=== PATIENT | female | born 1950 | race Caucasian/White ===

== ENCOUNTER 2017-04-09 16:50 | Inpatient (IN) | payer SELFPAY ==
[~2017-04-09] VITALS: Ht 162.6 cm; Wt 60.8 kg
[2017-04-09 17:42] LABS: BASOPHILS % 0.5 % (0.0-2.0); HEMATOCRIT. 39.2 % (36.0-48.0); HEMOGLOBIN. 13.5 g/dL (12.0-16.0); LYMPHOCYTES % 17.6 % (20.0-50.0); MEAN CORPUSCULAR HEMOGLOBIN 32.3 pg (28.0-32.0); MEAN CORPUSCULAR VOLUME 93.8 fL (81.0-99.0); MEAN PLATELET VOLUME 7.8 fl (7.4-10.4); MONOCYTES % 5.6 % (2.0-8.0); NEUTROPHILS % 72.3 % (40.0-76.0); PLATELET 133 x1000/uL (130-400); RED BLOOD CELL COUNT 4.18 mill/uL (4.2-5.4); RED CELL DISTRIBUTION WIDTH 13.1 % (11.6-14.6)
[2017-04-09 17:57] LABS: AMMONIA 35 uMol/L (<32)
[2017-04-09 17:59] LABS: CARBON DIOXIDE 24 mEq/L (21-32); CHLORIDE 107 mEq/L (98-107); CREATINE KINASE 70 IU/L (26-192); ETHANOL BLOOD < 10 mg/dL; TROPONIN I < 0.02 ng/mL (0.00-0.04)
[2017-04-09 18:04] LABS: CLARITY URINE CLOUDY (CLEAR); COLOR URINE DARK YELLOW (YELLOW); GLUCOSE URINE NEGATIVE (NEGATIVE); KETONES URINE 1+ (NEGATIVE); LEUKOCYTE ESTERASE URINE 2+ (NEGATIVE); NITRITE URINE POSITIVE (NEGATIVE); OCCULT BLOOD URINE NEGATIVE (NEGATIVE); PH URINE 5.5 (4.5-8.0); PROTEIN URINE TRACE (NEGATIVE); SPECIFIC GRAVITY URINE 1.024 (1.005-1.030)
[2017-04-09 18:19] LABS: *AMPHETAMINES SCREEN URINE NEGATIVE (NEGATIVE); *BARBITURATES SCREEN URINE NEGATIVE (NEGATIVE); *BENZODIAZEPINES SCREEN URINE NEGATIVE (NEGATIVE); *COCAINE SCREEN URINE NEGATIVE (NEGATIVE); CANNABINOID URINE SCREEN NEGATIVE (NEGATIVE); METHADONE URINE SCREEN NEGATIVE (NEGATIVE); OPIATES URINE SCREEN NEGATIVE (NEGATIVE); PHENCYCLIDINE URINE SCREEN NEGATIVE (NEGATIVE)
[2017-04-09] MEDS ORDERED: LEVOFLOXACIN 500MG PREMIX 100 ML IV ONE (20:15)
[2017-04-09 23:15] VITALS: BP 140/60
[2017-04-09] MEDS ORDERED: ONDANSETRON HCL 4MG/2ML VIAL IV PRN (23:30)
[2017-04-09] MEDS ORDERED: CLONIDINE 0.1MG TABLET PO PRN (23:30)
[2017-04-09] MEDS ORDERED: LORAZEPAM 2MG/ML CPJ IV PRN (23:30)
[2017-04-10] VITALS: BP 140/60
[2017-04-10] MEDS: CHLORDIAZEPOXIDE 25MG CAPSULE PO SCH ×5 (00:23→18:36)
[2017-04-10] MEDS: DEXT 5%/0.9% NACL 1,000 ML IV SCH (00:23)
[2017-04-10 04:00] VITALS: BP 117/62
[2017-04-10 07:08] LABS: BASOPHILS % 0.4 % (0.0-2.0); EOSINOPHILS % 5.1 % (0.0-5.0); HEMATOCRIT. 34.6 % (36.0-48.0); HEMOGLOBIN. 11.7 g/dL (12.0-16.0); LYMPHOCYTES % 33.2 % (20.0-50.0); MEAN CORPUSCULAR HEMOGLOBIN 31.9 pg (28.0-32.0); MEAN CORPUSCULAR VOLUME 94.4 fL (81.0-99.0); MEAN PLATELET VOLUME 7.7 fl (7.4-10.4); MONOCYTES % 12.8 % (2.0-8.0); NEUTROPHILS % 48.5 % (40.0-76.0); PLATELET 91 x1000/uL (130-400); RED BLOOD CELL COUNT 3.66 mill/uL (4.2-5.4)
[2017-04-10 07:30] LABS: CARBON DIOXIDE 26 mEq/L (21-32); CHLORIDE 109 mEq/L (98-107)
[2017-04-10 08:00] VITALS: BP 109/60
[2017-04-10 12:00] VITALS: BP 130/73
[2017-04-10 16:00] VITALS: BP 114/63
[2017-04-10 20:00] VITALS: BP 127/85
[2017-04-10] MEDS: LEVOFLOXACIN 500MG PREMIX 100 ML IV SCH (22:27)
[2017-04-11] VITALS: BP 131/68
[2017-04-11 04:00] VITALS: BP 116/67
[2017-04-11 08:00] VITALS: BP 130/62
[2017-04-11] MEDS: CHLORDIAZEPOXIDE 25MG CAPSULE PO SCH ×2 (08:43→13:29)
[2017-04-11 12:00] VITALS: BP 113/60
[2017-04-11] MEDS: DEXT 5%/0.9% NACL 1,000 ML IV SCH (13:31)
[2017-04-11 16:00] VITALS: BP 113/62
[2017-04-11 20:00] VITALS: BP 121/62
[2017-04-11] MEDS: LEVOFLOXACIN 500MG PREMIX 100 ML IV SCH (21:27)
[2017-04-12] VITALS: BP 120/68
[2017-04-12 04:00] VITALS: BP 132/77
[2017-04-12 08:00] VITALS: BP 121/69
[2017-04-12] MEDS: CHLORDIAZEPOXIDE 25MG CAPSULE PO SCH ×3 (09:00→17:24)
[2017-04-12] MEDS: DEXT 5%/0.9% NACL 1,000 ML IV SCH (09:03)
[2017-04-12 12:00] VITALS: BP 114/54
[2017-04-12 16:00] VITALS: BP 107/63
[2017-04-12] MEDS: LEVOFLOXACIN 500MG TABLET PO SCH (17:24)
[2017-04-12 20:00] VITALS: BP 120/65
[2017-04-13] VITALS: BP 123/68
[2017-04-13 04:00] VITALS: BP 128/71
[2017-04-13 08:00] VITALS: BP 131/63
[2017-04-13] MEDS: CHLORDIAZEPOXIDE 25MG CAPSULE PO SCH ×3 (10:16→17:28)
[2017-04-13 12:00] VITALS: BP 119/67
[2017-04-13] MEDS: LEVOFLOXACIN 500MG TABLET PO SCH (12:46)
[2017-04-13] MEDS: DEXT 5%/0.9% NACL 1,000 ML IV SCH (12:49)
[2017-04-13 16:00] VITALS: BP 118/66
[2017-04-13 17:44] VITALS: BP 107/63
== END 2017-04-13 18:30 | disposition home or self-care (01) | DRG 720 ==
LOC: ER 16:50 → 6EST 21:10 → EDBEDREQSVC 21:13 → EDBEDREQTM 21:13 → EDBEDREQ 21:13 → ENRESERV 21:57
PROVIDERS: ADMIT Hospitalist; ATTEND Hospitalist
DX: A41.9 Sepsis, unspecified organism (principal); G93.40 Encephalopathy, unspecified; F03.90 Unspecified dementia, unspecified severity, without behavioral disturbance, psychotic disturbance, mood disturbance, and anxiety; N39.0 Urinary tract infection, site not specified; F10.10 Alcohol abuse, uncomplicated
CPT/HCPCS: 36415; 70450; 71010; 80053; 80305; 81001; 82140; 82550; 82962; 83605; 83880; 84443; 84484; 85025; 87040; 93005; 96361; 96365; 96367; 96375; 99285; G0482; J1956; J2060; J7030; J7042